=== PATIENT | female | born 1995 | race Caucasian/White ===

== ENCOUNTER 2018-10-16 18:18 | Emergency (ER) | payer SELFPAY ==
[~2018-10-16] VITALS: Ht 170.2 cm; Wt 54.4 kg
[2018-10-16] MEDS ORDERED: NKM (18:35)
[2018-10-16 18:42] VITALS: BP 137/91
--- NOTE | 2018-10-16 18:42 | NUR ---
ED Nurse Note: pt walked in to ER with a friend from home as reporting that she had panic attack at home today by 1640. pt c/o Lt side of face tingling and Lt hand numbness. pt aao x4 and ambulatory. skin clean and intact. calm and cooperative. no acute distress noted at this time.
--- NOTE | 2018-10-16 19:00 | NUR ---
ED Nurse Note: x-ray at bedside.
--- NOTE | 2018-10-16 19:04 | NUR ---
ED Nurse Note: EKG at bedside.
--- NOTE | 2018-10-16 19:06 | NUR ---
ED Nurse Note: pt went to bathroom to provide urine sample.
--- NOTE | 2018-10-16 19:08 | NUR ---
Charline acuna in ED - 10/16/18 at 1914 by [email or web address] ED Nurse Note: US initiated at bedside.
--- NOTE | 2018-10-16 19:10 | NUR ---
HAND-OFF: Report given to SIRENA Byers. Blood sample and medication will be carried.
--- NOTE | 2018-10-16 19:14 | NUR ---
ED Nurse Note: pt went down to CT with 1 tech in stable condition.
--- NOTE | 2018-10-16 19:15 | NUR ---
ED Nurse Note: RECIEVED REPORT TO [facility]UME [facility], PT IN BED AWAKE, ALERT AND ORIENTED X 4, PT HAS LABS ALREADY ORDERED, COLLECTED AND SENT, IV LINE INSERTED ALSO, PT TO HAVE IMAGES DONE, PT DENIES BEING PANIC AT THIS TIME, STATES IS CALMING DOWN, PT HAS FAMILY AT BEDSIDE, WILL RESUME CARE ORDERED AND CONTINUE TO CLOSELY MONITOR.
[2018-10-16 19:57] LABS: ANION GAP 9 mmol/L (5-15); BLOOD UREA NITROGEN 9 mg/dL (7-18); CALCIUM 9.9 MG/DL (8.5-10.1); CARBON DIOXIDE 25 MMOL/L (21-32); CHLORIDE 105 MMOL/L (98-107); CREATININE 1.1 MG/DL (0.55-1.30); POTASSIUM 3.9 MMOL/L (3.5-5.1); SODIUM 139 MMOL/L (136-145)
[2018-10-16 20:15] LABS: ALANINE AMINOTRANSFERASE 15 U/L (12-78); ALKALINE PHOSPHATASE 72 U/L (46-116); ASPARTATE AMINO TRANSFERASE 17 U/L (15-37); BILIRUBIN,TOTAL 0.4 MG/DL (0.2-1.0)
[2018-10-16 20:16] LABS: APPEARANCE,URINE CLEAR; BILIRUBIN, URINE NEGATIVE (NEGATIVE); COLOR,URINE PALE YELLOW; GLUCOSE, URINE (UA) NEGATIVE (NEGATIVE); KETONES,URINE NEGATIVE (NEGATIVE); LEUKOCYTE ESTERASE ,URINE NEGATIVE (NEGATIVE); NITRITE,URINE NEGATIVE (NEGATIVE); PH,URINE 7 (4.5-8.0); PROTEIN,URINE NEGATIVE (NEGATIVE); UROBILINOGEN,URINE NORMAL MG/DL (0.0-1.0)
[2018-10-16 20:19] LABS: BASOPHILS % (AUTO) 0.7 % (0.0-2.0); EOSINOPHILS % (AUTO) 0.3 % (0.0-3.0); HEMATOCRIT 42.5 % (37.0-47.0); HEMOGLOBIN 14.5 G/DL (12.0-16.0); LYMPHOCYTES % (AUTO) 13.9 % (20.0-45.0); MEAN CORPUSCULAR VOLUME 92 FL (80-99); MONOCYTES % (AUTO) 3.2 % (1.0-10.0); NEUTROPHILS % (AUTO) 81.9 % (45.0-75.0); PLATELET COUNT 256 K/UL (150-450); RED BLOOD COUNT 4.59 M/UL (4.20-5.40); RED CELL DISTRIBUTION WIDTH 10.9 % (11.6-14.8); WHITE BLOOD COUNT 11.4 K/UL (4.8-10.8)
[2018-10-16 20:20] VITALS: BP 129/84
--- NOTE | 2018-10-16 20:34 | Emergency Room Report ---
History of Present Illness General Chief Complaint: General Complaint Source: Patient (Saba Garnica) Present Illness HPI 23-year-old female with no significant past medical history here complaining of sudden onset of palpitation and numbness in both hands and blurry vision and left eye. Patient reports that she has had migraine headaches in the past however has not had one in the very long time her migraine headaches used to be with a aura and she used to take injections however she normally takes ibuprofen for the headache portion. Denies any nausea or vomiting right now. Patient was sitting at home and all she had today was a cup of coffee and doughnut was a different brand of coffee she usually drinks 1 to 2 cups of coffee a day. Patient started feeling palpitation and numbness in both hands as she was sitting down at home. Paramedics came to the scene and her blood sugar was 81 patient does not have any history of diabetes or any other medical condition. Denies loss of consciousness, head trauma, urinary symptoms. Denies chest pain, shortness of breath, abdominal pain, diarrhea and vomiting. Patient reports that she lives in [place] and she is here for the summer to be with her sister. Denies any drug use, smoking, alcohol intake. Patient reports that she is a little bit anxious and feel like is having anxiety attack and scared of having a stroke. The only medication that she takes and has been taking it for the past 3 years is Tri-Sprintec. Denies calf tenderness, family history of multiple sclerosis. Has not taken medication for her symptoms. Patient last menstrual. Was beginning of last month denies . Patient reports that she did not have a good night sleep last night however does not have a sleeping problem or low appetite. Denies SI and HI. Denies history of depression anxiety however says that it runs in her family. Denies any new stressors or any new job. Patient says that she wears glasses and sees her indirect sales exec regularly denies curtain like sensation versus a left eye feels like something is moving and she sees a spot. Also feels chills denies loss of balance or dizziness. Denies recent URI symptoms (Saba Garnica) Allergies: Coded Allergies: No Known Allergies (Unverified , 10/16/18) Patient History Past Medical History: see triage record Past Surgical History: unable to obtain Pertinent Family History: none Last Menstrual Period: september Now: No : 0 Immunizations: UTD Reviewed Nursing Documentation: PMH: Agreed; PSxH: Agreed (Saba Garnica) Nursing Documentation-PMH Past Medical History: No Stated History (Saba Garnica) Review of Systems All Other Systems: negative except mentioned in HPI (Saba Garnica) Physical Exam Vital Signs Date Time Temp Pulse Resp B/P (MAP) Pulse Ox O2 Delivery O2 Flow Rate FiO2 10/16/18 18:30 98.6 90 12 137/91 (106) 98 Room Air Sp02 EP Interpretation: reviewed, normal General Appearance: normal inspection, well appearing, no apparent distress, alert, GCS 15 Head: normocephalic, atraumatic Eyes: bilateral eye normal inspection, bilateral eye PERRL ENT: normal ENT inspection, hearing grossly normal, normal pharynx, no angioedema Neck: normal inspection, full range of motion, supple, thyroid normal Respiratory: normal inspection, chest non-tender, lungs clear, normal breath sounds, no rhonchi, no respiratory distress, no retraction Cardiovascular #1: normal inspection, normal peripheral pulses, regular rate, rhythm, no edema, no murmur, normal capillary refill Gastrointestinal: normal inspection, non tender, soft, no mass Rectal: deferred Genitourinary: no CVA tenderness Musculoskeletal: normal inspection, back normal, digits/nails normal, gait/ station normal, normal range of motion Neurologic: normal inspection, alert, oriented x3, responsive, channel marketing manager III-XII nml as tested, motor strength/tone normal, DTRs symmetric, SLR negative, sensory intact, cerebellar normal, normal gait, speech normal, no Babinski, no pronator Psychiatric: judgement/insight normal, memory normal, mood/affect normal, no suicidal/homicidal ideation, no delusions, anxious Suicide Risk Assessment: Suicidal Ideation: No Had intent to initiate attempt: No Pt's plan for suicide attempt: No Has means to complete attempt: No Skin: no rash, palpation normal, normal turgor Lymphatic: normal inspection, no adenopathy (Saba Garnica) Medical Decision Making PA Attestation All diagnoses and treatment plans were reviewed and discussed with my supervising physician Dr. Hernandez ([facility]) Diagnostic Impression: Primary Impression: Syncope, vasovagal Additional Impression: Migraine ER Course 23-year-old female with no significant past medical history here complaining of sudden onset of palpitation and numbness in both hands and blurry vision and left eye. Patient reports that she has had migraine headaches in the past however has not had one in the very long time her migraine headaches used to be with a aura and she used to take injections however she normally takes ibuprofen for the headache portion. Denies any nausea or vomiting right now. Patient was sitting at home and all she had today was a cup of coffee and doughnut was a different brand of coffee she usually drinks 1 to 2 cups of coffee a day. Patient started feeling palpitation and numbness in both hands as she was sitting down at home. Paramedics came to the scene and her blood sugar was 81 patient does not have any history of diabetes or any other medical condition. Denies loss of consciousness, head trauma, urinary symptoms. Denies chest pain, shortness of breath, abdominal pain, diarrhea and vomiting. Patient reports that she lives in [place] and she is here for the summer to be with her sister. Denies any drug use, smoking, alcohol intake. Patient reports that she is a little bit anxious and feel like is having anxiety attack and scared of having a stroke. The only medication that she takes and has been taking it for the past 3 years is Tri-Sprintec. Denies calf tenderness, family history of multiple sclerosis. Has not taken medication for her symptoms. Patient last menstrual. Was beginning of last month denies . Patient reports that she did not have a good night sleep last night however does not have a sleeping problem or low appetite. Denies SI and HI. Denies history of depression anxiety however says that it runs in her family. Denies any new stressors or any new job. Patient says that she wears glasses and sees her indirect sales exec regularly denies curtain like sensation versus a left eye feels like something is moving and she sees a spot. Also feels chills denies loss of balance or dizziness. Denies recent URI symptoms Ddx considered but are not limited to: Vasovagal syncope, syncope secondary to cardiac reasons, multiple sclerosis, anxiety secondary to coughing take Vital signs: are WNL, pt. is afebrile H&PE are most consistent with: Vasovagal syncope, migraine ORDERS: Head CT no contrast, CBC, CMP, UA, urine test, tox screen, alcohol levels, chest x-ray ER intervention: NS bolus DISCHARGE: At this time pt. is stable for d/c to home. Will provide printed patient care instructions, and any necessary prescriptions. Care plan and follow up instructions have been discussed with the patient prior to discharge. I advised the patient to follow-up with her primary care provider for further assessment of migraine headache increase oral hydration avoid intake of large quantity of caffeine, avoid drinking alcohol, and exposure to strong odors such as perfumes. Patient reports that she no longer has the blurry vision after being given IV fluids (Saba Garnica) EKG Diagnostic Results Rate: normal Rhythm: NSR ST Segments: no acute changes Other Impression No acute ST changes not suggesting of SVT (Saba Garnica) Chest X-Ray Diagnostic Results Chest X-Ray Diagnostic Results : Chest X-Ray Ordered: Yes # of Views/Limited/Complete: 1 View Indication: Chest Pain EP Interpretation: Yes PA Xray: Interpretation reviewed, by supervising MD, and agrees with findings. Interpretation: no consolidation, no effusion, no pneumothorax, no acute cardiopulmonary disease Impression: No acute disease Electronically Signed by: Saba Ely PA-C (Saba Garnica) Chest X-Ray Diagnostic Results : Electronically Signed by: Thomas Luna documentation of Xray reviewed by me and is accurate, Talat Hernandez MD (Talat Hernandez MD) CT/MRI/US Diagnostic Results CT/MRI/US Diagnostic Results : Imaging Test Ordered: Head CT no contrast Impression CT HEAD Without Contrast: No evidence for acute intracranial hemorrhage. The reed-white matter differentiation appears maintained. The ventricles and cisterns are normal in size and configuration. No evidence for significant mass effect or midline shift. Focal area of polypoid mucosal thickening in the left maxillary sinus. The mastoid air cells are unremarkable. (Saba Garnica) Last Vital Signs Date Time Temp Pulse Resp B/P (MAP) Pulse Ox O2 Delivery O2 Flow Rate FiO2 10/16/18 18:42 90 12 Room Air 10/16/18 18:42 98.6 137/91 98 (Saba Garnica) Disposition: HOME, SELF-CARE Condition: Stable Scripts Aspirin/Acetaminophen/Caffeine (EXCEDRIN EXTRA STRENGTH CAPLET) 1 Each Tablet 1 EACH PO DAILY, #20 TAB Prov: Saba Garnica 10/16/18 Referrals: NOT CHOSEN IPA/,REFERRING (PCP) Patient Instructions: Migraine Headache, [id number], Vasovagal Syncope, Adult Additional Instructions: Follow-up with a primary care provider for further assessment take medication as directed increase oral hydration and reduce your caffeine intake if worsening symptoms return to the emergency room. Saba Garnica Oct 16, 2018 20:34 Talat Hernandez MD Oct 19, 2018 02:15
[2018-10-16] MEDS ORDERED: EXCEDRIN EXTRA1 EAC1 PO (20:46)
--- NOTE | 2018-10-16 21:10 | NUR ---
ED Nurse Note:ER DISCHARGE NOTE: Patient is cleared to be discharged per ERMD, pt is aox4, on room air, with stable vital signs. pt was given dc and prescription instructions, pt was able to verbalize understanding, pt id band and iv site removed without complications. pt is able to ambulate with steady gait. pt took all belongings.
[2018-10-16 21:15] VITALS: BP 119/81
[2018-10-16 21:27] VITALS: BP 119/81
--- NOTE | 2018-10-17 09:28 | Diagnostic Imaging Report ---
Indications: Headache Technique: Spiral acquisitions obtained through the brain. Angled axial and coronal 5 x 5 mm slices were reconstructed. Total dose length product 1305.71 mGycm. CTDI vol(s) 70.38 mGy. Dose reduction achieved using automated exposure control Comparison: None. Findings: No acute intrarenal hemorrhage or edema, mass effect, nor midline shift. Normal reed-white differentiation. Normal-sized ventricles and extra axial CSF spaces. The mastoids are clear. The visualized orbits are unremarkable. There are is a mucous retention cyst versus polyp in the left maxillary sinus Impression: Negative acute intracranial bleed or mass effect Left maxillary sinus mucous retention cyst versus polyp This agrees with the preliminary interpretation provided overnight by [facility] teleradiology service. The CT scanner at [facility] is accredited by the [employer] and the scans are performed using protocols designed to limit radiation exposure to as low as reasonably achievable to attain images of sufficient resolution adequate for diagnostic evaluation.
--- NOTE | 2018-10-17 12:54 | Diagnostic Imaging Report ---
Indication: Chest pain Technique: One view of the chest Comparison: none Findings: Lungs and pleural spaces are clear. Heart size is normal Impression: No acute process
== END 2018-10-16 21:25 | disposition home or self-care (01) ==
LOC: EMR 19:44
DX: R55 Syncope and collapse (principal); G43.909 Migraine, unspecified, not intractable, without status migrainosus; R20.2 Paresthesia of skin
CPT/HCPCS: 36415; 70450; 71045; 80053; 81001; 81025; 84443; 85025; 93005; 96360; 99284; G0480; 80329